=== PATIENT | female | born 1960 | race Caucasian/White ===

== ENCOUNTER → 2017-01-07 | Outpatient (CLI) | payer BC ==
--- NOTE | 2017-01-08 08:10 | REPMRS ---
Patient History The patient states she had a clinical breast exam in 12/2016. Patient is postmenopausal and has history of other cancer at age 49. No known family history of cancer. Taking estrogen for 8 years. Digital Woman Screen Mammo: January 07, 2017 - Exam #: [id number] Bilateral CC and MLO view(s) were taken. Technologist: Britney Domingo, Technologist Prior study comparison: November 08, 2015, digital woman screen mammo performed at [facility]. October 12, 2014, digital woman screen mammo performed at [facility]. October 11, 2013, digital woman screen mammo performed at [facility]. FINDINGS: The breast tissue is heterogeneously dense. This may lower the sensitivity of mammography. There is a moderate amount of heterogeneously dense fibroglandular tissue which is fairly symmetric. There is no interval development of dominant mass, architectural distortion, or clustered microcalcification typical of malignancy. There has been no change in the appearance of the mammogram from the prior studies. ASSESSMENT: BI-RADS/ACR category 1 mammogram. Negative. Recommendation Routine screening mammogram of both breasts in 1 year (for women over age 40). This mammogram was interpreted with the aid of an FDA-approved computer-aided dectection system. Electronically Signed By: Ananda Bang MD 01/08/17 0810
== END ==
LOC: M WHC 15:01
PROVIDERS: ATTEND Nurse Practitioner Family
DX: Z12.31 Encounter for screening mammogram for malignant neoplasm of breast (principal)

== ENCOUNTER → 2017-12-16 | Outpatient (REF) | payer BC ==
[2017-12-16 16:19] LABS: APPEARANCE, URINE CLOUDY (CLEAR); BACTERIA, URINE AUTO 2+ (NEGATIVE); BILIRUBIN, URINE AUTO NEGATIVE (NEGATIVE); BLOOD, URINE BLOOD 2+ (NEGATIVE); COLOR, URINE YELLOW (YELLOW); GLUCOSE, URINE (UA) AUTO NEGATIVE (NEGATIVE); KETONE, URINE AUTO NEGATIVE (NEGATIVE); LEUKOCYTE ESTERASE, URINE AUTO 3+ (NEGATIVE); MUCUS, URINE SMALL (NEGATIVE); NITRITE, URINE AUTO POSITIVE (NEGATIVE); PROTEIN, URINE AUTO NEGATIVE (NEGATIVE); RBC, URINE AUTO 22 /HPF (0-3); SPECIFIC GRAVITY URINE AUTO 1.011 (1.002-1.035); SQUAMOUS EPITHELIAL CELL UR AU 3 /HPF (0-6); UROBILINOGEN, URINE AUTO 0.2 mg/dL (0.0-2.0); WBC, URINE AUTO TNTC /HPF (0-3)
== END ==
LOC: M SFHCPLAZ 15:41
DX: R30.0 Dysuria (principal)
CPT/HCPCS: 81001

== ENCOUNTER → 2018-04-06 | Outpatient (CLI) | payer BC | LOC: M WHC 13:46 | DX: Z12.31 Encounter for screening mammogram for malignant neoplasm of breast (principal) | CPT/HCPCS: 77067 ==

== ENCOUNTER → 2018-07-08 | Outpatient (REF) | payer BC ==
[2018-07-08 15:34] LABS: BASO % 0.5 % (0.0-1.0); EOS # 0.1 10^3/uL (0.0-0.50); EOS % 2.4 % (0.0-3.0); HEMATOCRIT 38.6 % (36.0-47.0); HEMOGLOBIN 12.9 g/dl (12.0-15.5); LYMPH # 1.3 10^3/uL (1.5-4.5); LYMPH % 34.8 % (24.0-44.0); MEAN CORPUSCULAR HEMOGLOBIN 31.1 pg (27.0-33.0); MEAN CORPUSCULAR HGB CONC 33.4 g/dl (32.0-36.5); MONO # 0.3 10^3/uL (0.0-0.8); MONO % 8.9 % (0.0-5.0); NEUTROPHILS % 53.4 % (36.0-66.0); PLATELET COUNT, AUTOMATED 177 10^3/uL (150-450); RED BLOOD COUNT 4.15 10^6/uL (4.00-5.40); RED CELL DISTRIBUTION WIDTH 12.1 % (11.5-14.5); WHITE BLOOD COUNT 3.8 10^3/uL (4.0-10.0)
[2018-07-08 15:38] LABS: ALBUMIN 3.7 GM/DL (3.2-5.2); ALBUMIN/GLOBULIN RATIO 1.32 (1.00-1.93); ALKALINE PHOSPHATASE 98 U/L (45-117); ALT/SGPT 19 U/L (12-78); ANION GAP 5 MEQ/L (8-16); AST/SGOT 24 U/L (7-37); BILIRUBIN,TOTAL 1.2 MG/DL (0.2-1.0); BLOOD UREA NITROGEN 20 MG/DL (7-18); CALCIUM LEVEL 8.6 MG/DL (8.5-10.1); CARBON DIOXIDE LEVEL 27 MEQ/L (21-32); CHLORIDE LEVEL 109 MEQ/L (98-107); CREATININE FOR GFR 0.73 MG/DL (0.55-1.30); GLOMERULAR FILTRATION RATE > 60.0 (>51); GLUCOSE, FASTING 87 MG/DL (70-100); RHEUMATOID FACTOR QUANT < 10.0 IU/ML (<15.0); SODIUM LEVEL 141 MEQ/L (136-145); TOTAL 25(OH) VITAMIN D 35.8 NG/ML (30.0-100.0); TOTAL PROTEIN 6.5 GM/DL (6.4-8.2)
[2018-07-08 16:46] LABS: ERYTHROCYTE SEDIMENTATION RATE 10 mm/hr (0-30)
[2018-07-10 14:10] LABS: ANTINUCLEAR ANTIBODIES DIRECT Negative (Negative)
== END ==
LOC: M LABNEURO 09:13
DX: R51 Headache (principal)

== ENCOUNTER → 2018-11-20 | Outpatient (REF) | payer BC | LOC: M LAB REF 15:15 | PROVIDERS: ATTEND Physician Assistant | DX: N39.0 Urinary tract infection, site not specified (principal) ==

== ENCOUNTER → 2018-12-03 | Outpatient (REF) | payer BC ==
[2018-12-03 09:41] LABS: HEMATOCRIT 41.7 % (36.0-47.0); HEMOGLOBIN 13.9 g/dl (12.0-15.5); MEAN CORPUSCULAR HEMOGLOBIN 30.7 pg (27.0-33.0); MEAN CORPUSCULAR HGB CONC 33.3 g/dl (32.0-36.5); MEAN CORPUSCULAR VOLUME 92.1 fl (80.0-96.0); PLATELET COUNT, AUTOMATED 195 10^3/uL (150-450); RED BLOOD COUNT 4.53 10^6/uL (4.00-5.40); WHITE BLOOD COUNT 4.9 10^3/uL (4.0-10.0)
[2018-12-03 10:17] LABS: ALBUMIN 4.5 GM/DL (3.2-5.2); ALT/SGPT 18 U/L (12-78); BILIRUBIN,TOTAL 0.8 MG/DL (0.2-1.0); BLOOD UREA NITROGEN 21 MG/DL (7-18); CALCIUM LEVEL 9.2 MG/DL (8.5-10.1); CARBON DIOXIDE LEVEL 25 MEQ/L (21-32); CHLORIDE LEVEL 111 MEQ/L (98-107); CHOLESTEROL LEVEL 198 MG/DL (<200); CHOLESTEROL RISK RATIO 2.828 (<5); CREATININE FOR GFR 0.94 MG/DL (0.55-1.30); FREE T4 0.94 NG/DL (0.76-1.46); GLOMERULAR FILTRATION RATE > 60.0 (>51); GLUCOSE, FASTING 90 MG/DL (70-100); HDL CHOLESTEROL 70 MG/DL (>40); LDL CHOLESTEROL 116 MG/DL (<100); NON-HDL-C 128 MG/DL; POTASSIUM SERUM 3.7 MEQ/L (3.5-5.1); SODIUM LEVEL 142 MEQ/L (136-145); TOTAL PROTEIN 7.1 GM/DL (6.4-8.2); TRIGLYCERIDES LEVEL 59 MG/DL (<150); VITAMIN B12 LEVEL 329 PG/ML (247-911)
[2018-12-03 10:19] LABS: FOLATE 10.1 NG/ML (>5.4)
== END ==
LOC: M SFHCPLAZ 07:54
PROVIDERS: ATTEND Physician Assistant
DX: G47.00 Insomnia, unspecified (principal); Z13.220 Encounter for screening for lipoid disorders; K14.6 Glossodynia

== ENCOUNTER → 2019-08-15 | Outpatient (CLI) | payer BC ==
--- NOTE | 2019-08-15 14:51 | REPMRS ---
Patient History The patient states she had a clinical breast exam in 2018. Patient is postmenopausal and has history of other cancer at age 49. No known family history of cancer. Took estrogen for 9 years. 3D TOMOSYNTHESIS WAS PERFORMED. The [place] Cox lifetime risk for breast cancer is 6.0%. Digital Woman Screen Mammo: August 15, 2019 - Exam #: [id number] Bilateral CC and MLO view(s) were taken. Technologist: Lizzie Perez, Technologist Prior study comparison: April 06, 2018, bilateral digital woman screen mammo performed at [facility]. January 07, 2017, digital woman screen mammo performed at [facility]. FINDINGS: The breast tissue is heterogeneously dense. This may lower the sensitivity of mammography. There has been no change in the appearance of the mammogram from the prior studies. There is a moderate amount of residual fibroglandular tissue which is fairly symmetric. There is no interval development of dominant mass, areas of architectural distortion, or clustered microcalcification typical of malignancy. Assessment: BI-RADS/ACR category 1 mammogram. Negative Mammogram. Recommendation Routine screening mammogram in 1 year (for women over age 40). This mammogram was interpreted with the aid of an FDA-approved computer-aided dectection system. Electronically Signed By: Paxton Scott MD 08/15/19 [id number]
== END ==
LOC: M WHC 13:29
PROVIDERS: ATTEND Nurse Practitioner Family
DX: Z12.31 Encounter for screening mammogram for malignant neoplasm of breast (principal)

== ENCOUNTER → 2020-08-22 | Outpatient (CLI) | payer BC ==
--- NOTE | 2020-08-22 15:54 | REPMRS ---
Patient History The patient states she had a clinical breast exam in July 2020. No known family history of cancer. Took estrogen for 9 years. Digital Woman Screen Mammo: August 22, 2020 - Exam #: [id number] Bilateral CC and MLO view(s) were taken. Technologist: Karissa Adair Technologist Prior study comparison: August 15, 2019, bilateral digital woman screen mammo performed at [facility]. April 06, 2018, bilateral digital woman screen mammo performed at [facility]. January 07, 2017, digital woman screen mammo performed at [facility]. FINDINGS: The breast tissue is extremely dense which could obscure a lesion on mammography. The [place] volumetric breast density category is: D. There is an extremely dense symmetrical pattern of residual fibroglandular tissue. There has been no change in the appearance of the mammogram from the previous studies. There is no interval development of dominant mass, archetectural distortion, or grouped microcalcifications suggestive of malignancy. 3-D tomosynthesis shows no additional findings. Assessment: BI-RADS/ACR category 1 mammogram. Negative Mammogram. Recommendation Routine screening mammogram of both breasts in 1 year (for women over age 40). This patient's [facility] Lifetime Breast Cancer RIsk is estimated at 5.8 %. This mammogram was interpreted with the aid of an FDA-approved computer-aided dectection system. Electronically Signed By: Ananda Bang MD 08/22/20 [id number]
== END ==
LOC: M WHC 14:55
PROVIDERS: ATTEND Nurse Practitioner Family
DX: Z12.31 Encounter for screening mammogram for malignant neoplasm of breast (principal)

== ENCOUNTER → 2021-03-14 | Outpatient (CLI) | payer BC ==
--- NOTE | 2021-03-14 13:50 | DEXAMM ---
INDICATION: Z13.820 SCR FOR OSTEOPOROSIS. COMPARISON: 11/23/2012. TECHNIQUE: Bone density was measured using dual-energy x-ray absorptiometry (DEXA). FINDINGS: AP SPINE L1-L4 BMD 0.949 g/cm2 Young Adult T-Score -2.0 Age Matched Z-Score -0.6. LT FEMUR, TOTAL BMD 0.742 g/cm2 Young Adult T-Score -2.1 Age Matched Z-Score -1.1. LT NECK BMD 0.707 g/cm2 Young Adult T-Score -2.4 Age Matched Z-Score -1.1. RT FEMUR, TOTAL BMD 0.729 g/cm2 Young Adult T-Score -2.2 Age Matched Z-Score -1.2. RT NECK BMD 0.692 g/cm2 Young Adult T-Score -2.5 Age Matched Z-Score -1.2. IMPRESSION: There is low bone density of the spine. There is low bone density of the left hip. There is low bone density of the right hip. The density of the spine has decreased 13.6% since the initial exam on 11/23/2012. The density of the left hip has decreased 18.0% since initial exam on 11/23/2012. The density of the right hip has decreased 19.7% since the initial exam on 11/23/2012. FOLLOW-UP: Recommendation for the next bone density exam: 2 years. <Electronically signed by Paxton Scott > 03/14/21 [id number]
== END ==
LOC: M WHC 12:49
PROVIDERS: ATTEND Physician Assistant
DX: Z13.820 Encounter for screening for osteoporosis (principal); M85.88 Other specified disorders of bone density and structure, other site; M85.852 Other specified disorders of bone density and structure, left thigh; M85.851 Other specified disorders of bone density and structure, right thigh

== ENCOUNTER → 2021-03-14 | Outpatient (REF) | payer BC | LOC: M LAB REF 17:46 | PROVIDERS: ATTEND Physician Assistant | DX: N39.0 Urinary tract infection, site not specified (principal) ==

== ENCOUNTER → 2021-10-21 | Outpatient (CLI) | payer OTHER | LOC: M WHC 12:17 | PROVIDERS: ATTEND Family Medicine | DX: Z12.31 Encounter for screening mammogram for malignant neoplasm of breast (principal) ==

== ENCOUNTER → 2022-12-08 | Outpatient (CLI) | payer OTHER | LOC: M WHC 11:57 | PROVIDERS: ATTEND Family Medicine | DX: Z12.31 Encounter for screening mammogram for malignant neoplasm of breast (principal) ==

== ENCOUNTER → 2023-04-13 | Outpatient (CLI) | payer OTHER | LOC: M WHC 12:16 | PROVIDERS: ATTEND Physician Assistant | DX: Z13.820 Encounter for screening for osteoporosis (principal); M85.852 Other specified disorders of bone density and structure, left thigh; M85.88 Other specified disorders of bone density and structure, other site; M81.0 Age-related osteoporosis without current pathological fracture ==

== ENCOUNTER → 2023-05-27 | Outpatient (CLI) | payer OTHER | LOC: M RAD 16:23 | PROVIDERS: ATTEND Family Medicine | DX: N23 Unspecified renal colic (principal); R30.0 Dysuria; N13.2 Hydronephrosis with renal and ureteral calculous obstruction ==

== ENCOUNTER → 2023-10-12 | Outpatient (REF) | payer OTHER | LOC: M LAB REF 16:55 | PROVIDERS: ATTEND Family Medicine | DX: R30.0 Dysuria (principal) ==

== ENCOUNTER → 2023-12-10 | Outpatient (REF) | payer OTHER | LOC: M LAB REF 16:56 | PROVIDERS: ATTEND Family Medicine | DX: R30.0 Dysuria (principal) ==

== ENCOUNTER → 2023-12-10 | Outpatient (CLI) | payer OTHER | LOC: M WHC 12:58 | PROVIDERS: ATTEND Nurse Practitioner Family | DX: Z12.31 Encounter for screening mammogram for malignant neoplasm of breast (principal) ==

== ENCOUNTER 2024-03-21 12:54 | Outpatient (RCR) | payer MEDICARE, OTHER | END 2024-03-23 | LOC: M PT 12:54 | PROVIDERS: ATTEND Family Medicine | DX: M26.609 Unspecified temporomandibular joint disorder, unspecified side (principal) ==

== ENCOUNTER 2024-04-20 13:18 | Outpatient (RCR) | payer MEDICARE, OTHER | END 2024-04-23 | LOC: M PT 13:18 | PROVIDERS: ATTEND Family Medicine | DX: M26.609 Unspecified temporomandibular joint disorder, unspecified side (principal) ==

== ENCOUNTER 2024-04-27 12:37 | Outpatient (RCR) | payer MEDICARE, OTHER | END 2024-05-23 | LOC: M PT 12:37 | PROVIDERS: ATTEND Dentist General Practice | DX: M26.609 Unspecified temporomandibular joint disorder, unspecified side (principal) ==

== ENCOUNTER → 2024-09-08 | Outpatient (REF) | payer MEDICARE, OTHER | LOC: M SFHCWAGY 14:41 | PROVIDERS: ATTEND Nurse Practitioner Family | DX: N73.9 Female pelvic inflammatory disease, unspecified (principal) ==

== ENCOUNTER → 2024-11-01 | Outpatient (CLI) | payer MEDICARE, OTHER ==
[~2024-11-01] MED LIST: PROHANCE 279.3MG/ML 15ML VIAL ONE
== END ==
LOC: M PLAIMG 10:55
PROVIDERS: ATTEND Psychiatry & Neurology Neurology
DX: G50.1 Atypical facial pain (principal); G43.809 Other migraine, not intractable, without status migrainosus; M26.602 Left temporomandibular joint disorder, unspecified
CPT/HCPCS: 70336; 70553; A9576

== ENCOUNTER → 2024-12-22 | Outpatient (REF) | payer MEDICARE, OTHER | LOC: M SFHCWAGY 16:47 | PROVIDERS: ATTEND Nurse Practitioner Family | DX: N73.9 Female pelvic inflammatory disease, unspecified (principal) ==

== ENCOUNTER → 2024-12-22 | Outpatient (CLI) | payer MEDICARE, OTHER | LOC: M WHC 13:32 | PROVIDERS: ATTEND Nurse Practitioner Family | DX: Z12.31 Encounter for screening mammogram for malignant neoplasm of breast (principal); R92.343 Mammographic extreme density, bilateral breasts ==

== ENCOUNTER 2025-03-06 12:00 | Outpatient (RCR) | payer MEDICARE, OTHER | END 2025-03-23 | LOC: M PT 12:00 | PROVIDERS: ATTEND Family Medicine | DX: M26.603 Bilateral temporomandibular joint disorder, unspecified (principal) ==

== ENCOUNTER 2025-04-11 14:10 | Outpatient (RCR) | payer MEDICARE, OTHER | END 2025-04-23 | LOC: M PT 14:10 | PROVIDERS: ATTEND Family Medicine | DX: M26.603 Bilateral temporomandibular joint disorder, unspecified (principal) ==

== ENCOUNTER → 2025-07-31 | Outpatient (REF) | payer MEDICARE, OTHER | LOC: M LAB REF 16:42 | PROVIDERS: ATTEND Family Medicine | DX: N76.0 Acute vaginitis (principal) ==